=== PATIENT | female | born 1995 | race Caucasian/White ===

== ENCOUNTER → 2017-08-17 | Outpatient (CLI) | payer OTHER | END | disposition home or self-care (01) | LOC: KCIC 15:14 | DX: J45.41 Moderate persistent asthma with (acute) exacerbation (principal); R07.9 Chest pain, unspecified | CPT/HCPCS: 71046 ==

== ENCOUNTER → 2018-06-02 | Outpatient (CLI) | payer OTHER ==
--- NOTE | 2018-06-02 15:23 | KCIC ---
EXAM: Chest and left ribs, 4 views. HISTORY: Pain. Fall. COMPARISON: None. FINDINGS: A frontal view the chest and 3 views of the left ribs are obtained. There is no infiltrate, pleural effusion or pneumothorax. The heart is normal in size. There is minimal deformity of the lateral left eighth and ninth ribs on a single projection. IMPRESSION: 1. No acute pulmonary finding. 2. Possible nondisplaced lateral left eighth and ninth rib fractures. Correlate for pain in this location. Electronically signed by: Pushpa Quiñonez MD (06/02/2018 3:19 PM) [place] [id number]
== END | disposition home or self-care (01) ==
LOC: KCIC 14:11
PROVIDERS: ATTEND Family Medicine
DX: M95.4 Acquired deformity of chest and rib (principal)
CPT/HCPCS: 71101